=== PATIENT | female | born 2000 | race Hispanic/Latino ===

== ENCOUNTER 2023-07-22 23:38 | Emergency (ER) | payer SELFPAY ==
[2023-07-23] MEDS ORDERED: Acetaminophen 500 MG TAB ONE (01:37)
== END 2023-07-23 02:30 | disposition home or self-care (01) ==
LOC: CSHERS 23:38
DX: O23.02 Infections of kidney in pregnancy, second trimester (principal); N10 Acute pyelonephritis; Z87.891 Personal history of nicotine dependence; Z3A.20 20 weeks gestation of pregnancy
CPT/HCPCS: 76856